=== PATIENT | female | born 1990 | race Caucasian/White ===

== ENCOUNTER 2017-01-19 17:31 | Emergency (ER) | payer OTHER ==
[2017-01-19 17:51] VITALS: BP 111/71
--- NOTE | 2017-01-19 18:21 | UC ---
Luke Keller Billy, scribed for Iram Coburn MD on 01/19/17 at 1802 . 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 Patient says she was seen at [facility] [employer] for UTI approximately 1 month ago, and was treated with antibiotics for 5 days; her symptoms resolved. Patient states that since this morning, she has felt bladder pressure and burning with urination. She also reports increased urinary frequency some hematuria. Denies any nausea, vomiting, fevers, or myalgia. Patient regularly uses oral control and denies chance of . - History Of Current Complaint Chief Complaint: UCGU Stated Complaint: BURNING URINATING Time Seen by Provider: 01/19/17 17:58 Hx Obtained From: Patient Onset/Duration: Gradual Onset, Lasting Hours, Still Present Timing: Intermittent Severity Initially: Moderate Severity Currently: Moderate Pain Intensity: 5 Pain Scale Used: 0-10 Numeric Character: Burning Aggravating Factor(s): Urination Alleviating Factor(s): Nothing Associated Signs And Symptoms: Negative: Fever, Nausea, Vomiting(# Of Episodes = ) - Allergies/Home Medications Allergies/Adverse Reactions: Allergies Allergy/AdvReac Type Severity Reaction Status Date / Time Prednisone Allergy Intermediate Hives Verified 01/19/17 17:40 Home Medications: Home Medications Bupropion HCl [Bupropion HCl Xl] 01/19/17 [History] FLUoxetine CAP* [Prozac CAP*] 01/19/17 [History] Norethin Acet & Estrad-Fe [June11/30 1-20 mg-Mcg] 1 tab PO 01/19/17 [ History Confirmed 01/19/17] PMH/Surg Hx/FS Hx/Imm Hx Previously Healthy: Yes Cardiovascular History Of: Reports: Cardiac Disorders - "I have an extra heart beat" - Surgical History Surgical History: Yes Surgery Procedure, Year, and Place: Inguinal hernia repair right side. rhinoplasty/deviated septum - Family History Known Family History: Positive: Hypertension Negative: Diabetes - Social History Occupation: Student Alcohol Use: Weekly Alcohol Amount: 2x's per week Substance Use Type: None Smoking Status (MU): Former Smoker Type: Cigarettes Length of Time of Smoking/Using Tobacco: 10 years Have You Smoked in the Last Year: Yes When Did the Patient Quit Smoking/Using Tobacco: 7 months Review of Systems Constitutional: Negative Skin: Negative Eyes: Negative ENT: Negative Respiratory: Negative Cardiovascular: Negative Gastrointestinal: Negative Genitourinary: Dysuria, Hematuria, Frequency, Other - bladder pressure Motor: Negative Neurovascular: Negative Musculoskeletal: Negative Neurological: Negative Psychological: Negative All Other Systems Reviewed And Are Negative: Yes Physical Exam Triage Information Reviewed: Yes Appearance: Well-Appearing Vital Signs: Initial Vital Signs Temp 98.8 F 01/19/17 17:41 Pulse 80 01/19/17 17:41 Resp 16 01/19/17 17:41 BP 111/71 01/19/17 17:41 Pulse Ox 100 01/19/17 17:41 Vital Signs Reviewed: Yes Eye Exam: Normal Eyes: Positive: Conjunctiva Clear ENT: Positive: Normal ENT inspection Dental Exam: Normal Neck: Positive: Supple, Nontender, No Lymphadenopathy Respiratory: Positive: Lungs clear, Normal breath sounds, No respiratory distress, No accessory muscle use Cardiovascular: Positive: RRR, Pulses Normal Abdomen Description: Positive: Soft, Other: - Mild suprapubic pressure. Negative: CVA Tenderness (R), CVA Tenderness (L), Distended Musculoskeletal Exam: Normal Neurological Exam: Normal Psychological Exam: Normal Skin Exam: Normal Complaint Female Dx - Course Course Of Treatment: UTI - Differential Dx/Diagnosis Differential Diagnosis/HQI/PQRI: Ureteral Stone, Urinary Tract Infection Provider Diagnoses: UTI, hematuria Discharge - Discharge Plan Condition: Stable Disposition: HOME Prescriptions: Sulfamethox/Trimethoprim DS* [Bactrim DS 800/160 TAB*] 1 tab PO BID #13 tab Patient Education Materials: Urinary Tract Infection in Women (ED) Referrals: [facility] SULEIMAN Herrera [Primary Care Provider] - 1 Week Additional Instructions: First dose of bactrim was given here. drink plenty of watre. Make sure to follow up at the health center at school once you have completed the antibiotics to follow up on the blood in the urine. Follow up sooner if symptoms worsen or persist. Take a probiotic or a yogurt daily while on antibiotic to avoid complications of UTIs. The documentation as recorded by the Luke field Billy accurately reflects the service I personally performed and the decisions made by , Iram Coburn MD.
[2017-01-19] MEDS: Sulfamethox/Trimethoprim DS 800/160* TAB PO ONE ×2 (18:34→18:35)
== END 2017-01-19 18:36 | disposition home or self-care (01) ==
LOC: UCEAST 17:31
DX: N39.0 Urinary tract infection, site not specified (principal); R31.9 Hematuria, unspecified; Z87.440 Personal history of urinary (tract) infections; Z88.8 Allergy status to other drugs, medicaments and biological substances; Z87.891 Personal history of nicotine dependence
CPT/HCPCS: 81003; 87077; 87086; 87186; 99212; A9270-GY; G0463

== ENCOUNTER 2018-03-01 17:32 | Emergency (ER) | payer OTHER ==
[2018-03-01 18:00] VITALS: BP 119/73
--- NOTE | 2018-03-01 18:36 | UC ---
FLU HPI - HPI Summary HPI Summary: Onset of subjective fever, chills, headache, mild cough and congestion last night. Tylenol not helping. Last dose about 5 hours ago. Up-to-date flu shot. - History of Current Complaint Chief Complaint: UCRespiratory Stated Complaint: FLU-LIKE SYMPTOMS Time Seen by Provider: 03/01/18 18:35 Hx Obtained From: Patient Onset/Duration: Gradual Onset, Lasting Hours, Still Present Severity Currently: Moderate Severity Initially: Moderate Pain Intensity: 6 Pain Scale Used: 0-10 Numeric Associated Signs & Symptoms: Positive: Fever, Myalgia, Cough, Nasal Congestion, Headache - Allergy/Home Medications Allergies/Adverse Reactions: Allergies Allergy/AdvReac Type Severity Reaction Status Date / Time erythromycin base Allergy Rash Verified 03/01/18 18:02 [From Pediazole] sulfisoxazole Allergy Rash Verified 03/01/18 18:02 [From Pediazole] PMH/Surg Hx/FS Hx/Imm Hx Previously Healthy: Yes - Surgical History Surgical History: Yes Surgery Procedure, Year, and Place: Inguinal hernia repair right side. rhinoplasty/deviated septum - Family History Known Family History: Positive: Hypertension Negative: Diabetes - Social History Alcohol Use: Weekly Alcohol Amount: 2x's per week Substance Use Type: None Smoking Status (MU): Former Smoker Type: Cigarettes Length of Time of Smoking/Using Tobacco: 10 years Have You Smoked in the Last Year: Yes When Did the Patient Quit Smoking/Using Tobacco: 7 months Review of Systems Constitutional: Fever, Chills, Fatigue ENT: Nasal Discharge Respiratory: Cough Cardiovascular: Negative Gastrointestinal: Negative Musculoskeletal: Myalgia Neurological: Headache All Other Systems Reviewed And Are Negative: Yes Physical Exam Triage Information Reviewed: Yes Appearance: No Pain Distress, Well-Nourished, Ill-Appearing - MILD Vital Signs: Initial Vital Signs Temp 99.8 F 03/01/18 17:57 Pulse 85 03/01/18 17:57 Resp 18 03/01/18 17:57 BP 119/73 03/01/18 17:57 Pulse Ox 100 03/01/18 17:57 Vital Signs Reviewed: Yes Eyes: Positive: Conjunctiva Clear ENT: Positive: Hearing grossly normal, Pharynx normal, TMs normal Neck: Positive: Supple, Nontender, Enlarged Nodes @ - SHOTTY SPFL CERVICAL LAD Respiratory Exam: Normal Cardiovascular Exam: Normal Abdomen Description: Positive: Nontender, Soft Musculoskeletal: Positive: No Edema Neurological: Positive: Alert Psychological: Positive: Age Appropriate Behavior Skin: Negative: rashes Diagnostics - Laboratory Diagnostic Studies Completed/Ordered: FLU A POSITIVE Flu Course/Dx - Differential Dx/Diagnosis Provider Diagnoses: INFLUENZA A Discharge - Sign-Out/Discharge Documenting (check all that apply): Discharge - Discharge Plan Condition: Stable Disposition: HOME Prescriptions: Oseltamivir CAP* [Tamiflu CAP*] 75 mg PO BID #9 cap Patient Education Materials: Influenza (ED) Forms: *School Release Referrals: Lucille Stone NP [Primary Care Provider] - If Needed Additional Instructions: SWAB POSITIVE FOR INFLUENZA A. TAMIFLU TWICE DAILY FOR 5 DAYS. OTC MEDS NEEDED FOR FEVER, BODY ACHES. STAY WELL HYDRATED AND RESTED. SEEK FOLLOW-UP IF YOU ARE NOT IMPROVING EXPECTED. IBUPROFEN MAX DOSE: 600MG (3 TABS) EVERY 6 HRS OR 800MG (4 TABS) EVERY 8 HRS OR NAPROXEN MAX DOSE: 440MG (2 TABS) EVERY 12 HRS TYLENOL MAX DOSE: 1000MG (2 EXTRA STRENGTH TABS) EVERY 8 HRS OR 650MG (2 REGULAR TABS) EVERY 6 HRS - Billing Disposition and Condition Condition: STABLE Disposition: HOME
[2018-03-01] MEDS ORDERED: Oseltamivir CAP* 75 MG CAP PO ONE (18:45)
[2018-03-01] MEDS ORDERED: Ibuprofen TAB* 600 MG PO ONE (18:49)
== END 2018-03-01 18:55 | disposition home or self-care (01) ==
LOC: UCEAST 17:32
DX: J10.1 Influenza due to other identified influenza virus with other respiratory manifestations (principal); Z88.1 Allergy status to other antibiotic agents; Z87.891 Personal history of nicotine dependence
CPT/HCPCS: 87502; 99212; A9270-GY; G0463